=== PATIENT | female | born 1985 | race African-American/Black ===

== ENCOUNTER 2019-03-18 11:16 | Emergency (ER) | payer OTHER ==
[2019-03-18 11:27] VITALS: BP 132/65; PULSE 113; TEMP 102.7; BMI 45.8
--- NOTE | 2019-03-18 12:16 | PDOC ---
Attending Attestation - Resident Resident Name: Simon Awadlpoezkrzysztof Danitza - HPI HPI: 03/18/19 14:10 Pt presents to the ED after sent in from wound care clinic for fever. Wound is healing well, but patient has fever to 102. Patient reports fever for 3 days with cough productive of clear sputum. Denies other complaints except for mild R flank pain. - Physicial Exam PE: 03/18/19 15:51 Agree with resident exam. Patient is alert and in no acute distress. Lungs are clear. Heart regular rate and rhythm. Abdomen: soft, non tender, non distended. No CVA tenderness. - Medical Decision Making 03/18/19 15:53 Agree with resident exam. Patient presents to the ED after sent in from wound clinic for non specific fever. Labs, cxr and UA checked to evaluate for infection. UA shows evidence of mild UTI--will treat with antibiotics and discharge home.
[2019-03-18 13:00] LABS: BASO % 0.4 % (0-2.0); EOS % 0.1 % (0-4.5); HEMOGLOBIN 8.6 GM/dL (10.7-15.3); LYMPH % 21.7 % (8-40); MCH 25.5 pg (25.7-33.7); MCHC 31.9 g/dl (32.0-36.0); MEAN PLT VOLUME 9.3 fl (7.5-11.1); MONO % 13.5 % (3.8-10.2); NEUT % 64.3 % (42.8-82.8); PLATELET COUNT 183 K/MM3 (134-434); RBC 3.37 M/mm3 (3.60-5.2); RDW 18.3 % (11.6-15.6)
--- NOTE | 2019-03-18 13:13 | PDOC ---
History of Present Illness - General Chief Complaint: Pain Stated Complaint: FEVER Time Seen by Provider: 03/18/19 11:40 - History of Present Illness Initial Comments: 03/18/19 13:08 33 y/o/f sent here from the wound care clinic for an elevated temperature. She is being seen at the wound care clinic by Dr. Andrade for a blister on her left foot that is healing well. She states she started to feel chills starting 5 days ago. Since 4 days ago she has had intermittent headache, decreased appetite and has been vomiting. She does not feel nauseous now and has not seen any blood in her vomit. She also complains of left flank soreness. She denies any falls or trauma. She denies any diarrhea, chest pain, SOB, abd pain, sore throat, rhinorrhea, or other symptoms. PMHx: Anemia, DM SHx: , knee surgery Social: past tobacco use, denies current. denies alcohol use. LKNMP was on 03/15 , she is currently sexually active and uses protection. Past History - Past Medical History Allergies/Adverse Reactions: Allergies Allergy/AdvReac Type Severity Reaction Status Date / Time LATEX Allergy Uncoded 03/18/19 11:26 Home Medications: Ambulatory Orders Humalog 15 unit SQ AM 02/18/19 Iron 325 mg PO DAILY 02/18/19 Metformin HCl 1,000 mg PO BID 02/18/19 Ramipril 2.5 mg PO DAILY 02/18/19 Vitamin D2 50,000 unit PO WEEKLY 02/18/19 Sulfamethoxazole/Trimethoprim [Bactrim Ds -] 1 tab PO BID #14 tablet 03/18/19 Anemia: Yes COPD: No Diabetes: Yes (Type 2) HTN: Yes - Surgical History Orthopedic Surgery: Yes (Arthroscopy left knee) - Immunization History Immunization Up to Date: Yes - Suicide/Smoking/Psychosocial Hx Smoking History: Never smoked Have you smoked in the past 12 months: No If you are a former smoker, when did you quit?: 2017 Information on smoking cessation initiated: No Hx Alcohol Use: No Drug/Substance Use Hx: No Review of Systems - Review of Systems Constitutional: Yes: Chills, Loss of Appetite HEENTM: No: Nose Congestion, Throat Pain Respiratory: Yes: Cough. No: Shortness of Breath Cardiac (ROS): No: Chest Pain, Lightheadedness ABD/GI: Yes: Vomiting. No: Constipated, Diarrhea, Nausea : No: Burning, Dysuria Musculoskeletal: Yes: Other (left flank soreness) Integumentary: No: Rash Neurological: Yes: Headache Endocrine: Yes: Excessive Sweating *Physical Exam - Vital Signs Last Vital Signs Temp Pulse Resp BP Pulse Ox 102.7 F H 113 H 20 132/65 99 03/18/19 11:22 03/18/19 11:22 03/18/19 11:22 03/18/19 11:03/18/19 11:22 - Physical Exam General Appearance: Yes: Nourished, Appropriately Dressed HEENT: positive: EOMI, Normal Voice, Symmetrical, Pharynx Normal. negative: Pharyngeal Erythema Neck: positive: Trachea midline, Supple Respiratory/Chest: positive: Lungs Clear, Normal Breath Sounds Cardiovascular: positive: Regular Rhythm, Regular Rate, S1, S2 Musculoskeletal: negative: CVA Tenderness Extremity: positive: Normal Capillary Refill Integumentary: positive: Normal Color Neurologic: positive: Fully Oriented, Alert, Normal Response, Motor Strength / ED Treatment Course - LABORATORY CBC & Chemistry Diagram: 03/18/19 12:45 03/18/19 12:45 - ADDITIONAL ORDERS Additional order review: Laboratory Results 03/18/19 12:15 Urine HCG, Qual Negative 03/18/19 12:45 RBC 3.37 L MCV 80.0 MCHC 31.9 L RDW 18.3 H MPV 9.3 Neutrophils % 64.3 Lymphocytes % 21.7 Monocytes % 13.5 H Eosinophils % 0.1 Basophils % 0.4 - RADIOLOGY Radiology Studies Ordered: Category Date Time Status CHEST PA & LAT [RAD] Stat Radiology 03/18/19 12:54 Ordered Medical Decision Making - Medical Decision Making 03/18/19 13:24 33 y/o/f sent here from the wound care clinic for an elevated temperature. She is being seen at the wound care clinic by Dr. Anrdade for a blister on her left foot that is healing well. She states she started to feel chills starting 5 days ago. Since 4 days ago she has had intermittent headache, decreased appetite and has been vomiting. She does not feel nauseous now and has not seen any blood in her vomit. -Workup with CBC, CMP, UA, Urine culture, CXR. 03/18/19 13:47 -CBC shows anemia, patient has a history of anemia and states this is around her normal levels. -UA shows UTI. Patient also complaining of some flank pain. Will treat with Bactrim. -Prescription for Bactrim sent to patient's pharmacy. Will discharge patient home. *DC/Admit/Observation/Transfer Diagnosis at time of Disposition: UTI (urinary tract infection) Qualifiers: Urinary tract infection type: site unspecified Hematuria presence: without hematuria Qualified Code(s): N39.0 - Urinary tract infection, site not specified - Discharge Dispostion Disposition: HOME Condition at time of disposition: Stable - Prescriptions Prescriptions: Sulfamethoxazole/Trimethoprim [Bactrim Ds -] 1 tab PO BID #14 tablet - Referrals - Patient Instructions Printed Discharge Instructions: DI for Urinary Tract Infection (UTI) Additional Instructions: If you have worsening pain, vomiting, fever or other concerning symptoms please return to the ER. Please follow up with your primary care doctor in the next week. - Post Discharge Activity
[2019-03-18 13:17] LABS: EPI CELLS 3.1 /HPF (0-5/HPF); HYALINE CASTS 2 /lpf (0-8); PH,URINE 5.5 (5.0-8.0); URINE APPEARANCE CLEAR; URINE BACTERIA 3501.8 /hpf (NEGATIVE); URINE BILIRUBIN NEGATIVE (NEGATIVE); URINE COLOR YELLOW; URINE GLUCOSE (UA) 3+ (NEGATIVE); URINE KETONE TRACE (NEGATIVE); URINE LEUK ESTERASE NEGATIVE (NEGATIVE); URINE NITRITE NEGATIVE (NEGATIVE); URINE PROTEIN 1+ (NEGATIVE); URINE RBC 4 /hpf (0-4); URINE UROBILINOGEN 0.2 mg/dL (0.2-1.0); URINE WBC 8 /hpf (0-5)
[2019-03-18] MEDS ORDERED: IBUPROFEN 400 MG TABLET (FP) PO ONE ×2 (13:22→13:44)
[2019-03-18 13:29] LABS: ALBUMIN 3.2 g/dl (3.4-5.0); BILIRUBIN,TOTAL 0.7 mg/dL (0.2-1); BLOOD UREA NITROGEN 15.8 mg/dL (7-18); CALCIUM 8.7 mg/dL (8.5-10.1); CREATININE 1.2 mg/dL (0.55-1.3); POTASSIUM 4.2 mmol/L (3.5-5.1); TOT PROT 7.4 g/dl (6.4-8.2)
== END 2019-03-18 14:32 | disposition home or self-care (01) ==
LOC: JER 11:16
DX: N39.0 Urinary tract infection, site not specified (principal)
CPT/HCPCS: 36415; 71046-TC-FY; 80053; 81003; 84703; 85025; 87086; 87186; 99283-25